=== PATIENT | male | born 1945 | race Caucasian/White ===

== ENCOUNTER 2017-03-19 17:52 | Emergency (ER) | payer BC, OTHER ==
[~2017-03-19] VITALS: Ht 175.3 cm; Wt 154.9 kg
[~2017-03-19 17:52] MED LIST: ASPIRIN EC325 MG PO; AVAPRO300 MG PO; AZOR 5/40 MG1 TABLET PO; BENICAR HCT 201 EACH PO; BENICAR40 MG PO; CELECOXIB200 MG PO; COLACE100 MG PO; Coumadin,Jantoven PO; ENDOCET 5-3251 EACH PO; FENOGLIDE40 MG PO; Feosol PO; GLUCOPHAGE1000 MG PO; HYDROCODON-ACE1 EAC7 PO; IRON325 M1 PO; LOVENOX40 MG/0.4 SC; Lofibra,Triglide PO; NEXIUM40 MG PO; OxyCONTIN PO; PERCOCET 5/31 TABLET PO; PRAVACHOL40 MG PO; PREDNISONE10 MG PO; PREDNISONE20 MG PO; Senokot S,Pericolace PO; Tylenol Regular Stre PO; VITAMIN B-12250 MCG PO; VITAMIN D1000 INTUN PO; VITAMIN D2000 UNIT PO; Vitamin D PO; oxyCODONE PO
[2017-03-19 18:37] LABS: HEMATOCRIT 40.2 % (38.0-50.0); MCH 27.1 PG (29.0-34.0); MCHC 32.1 G/DL (30.0-36.0); MCV 84.5 FL (86-99); MEAN PLAT.VOLUME 9.7 uM^3 (9.0-12.4); PLATELET COUNT 264 K/uL (156-360); RBC DIS.WIDTH-CV 14.8 % (11.8-14.6); RBC DIS.WIDTH-SD 45.4 % (39-53); RED BLOOD COUNT 4.76 M/uL (4.00-5.50)
[2017-03-19 18:45] LABS: CHLORIDE 105 mEq/L (99-109); POTASSIUM 4.2 mEq/L (3.7-5.4); SODIUM 139 mEq/L (136-147)
[2017-03-19 18:47] LABS: GLUCOSE 108 mg/dL (70-99)
[2017-03-19 18:49] LABS: ANION GAP 7 MEQ/L (2-14)
[2017-03-19 18:51] LABS: GFR ESTIMATE (CALCULATED) > 59 mL/min/ (58.99-99999)
[2017-03-19 18:52] LABS: UREA NITROGEN (BUN) 12 mg/dL (9-23)
[2017-03-19 18:59] LABS: TROP-I INTERPRETATION NEGATIVE; TROPONIN-I < 0.01 ng/mL (0.0-0.30)
[2017-03-19 21:29] VITALS: BP 130/81
== END 2017-03-19 21:30 | disposition home or self-care (01) ==
LOC: EME 17:52
DX: R00.2 Palpitations (principal); K21.9 Gastro-esophageal reflux disease without esophagitis; I10 Essential (primary) hypertension; G47.33 Obstructive sleep apnea (adult) (pediatric); E11.9 Type 2 diabetes mellitus without complications; Z85.038 Personal history of other malignant neoplasm of large intestine; Z87.442 Personal history of urinary calculi; Z79.84 Long term (current) use of oral hypoglycemic drugs; Z79.82 Long term (current) use of aspirin; Z87.891 Personal history of nicotine dependence; Z91.041 Radiographic dye allergy status
CPT/HCPCS: 71020; 80048; 84484; 85027; 93005; 99281; 99284

== ENCOUNTER 2017-04-15 16:54 | Observation (INO) | payer OTHER ==
[~2017-04-15] VITALS: Ht 175.3 cm; Wt 154.1 kg
[~2017-04-15 16:54] MED LIST changes: +CYANOCOBALAM1000 MCG PO; -VITAMIN B-12250 MCG PO
[2017-04-15 19:51] LABS: BASOPHIL (%) 0.5 % (0-1); EOSINOPHIL (%) 1.9 % (0-5); EOSINOPHIL COUNT 0.2 K/uL (0-0.3); HEMATOCRIT 41.1 % (38.0-50.0); HEMOGLOBIN 13.2 G/DL (12.5-16.6); IMMATURE GRANULOCYTE (%) 0.4 % (0.0-0.7); LYMPHOCYTE (%) 36.3 % (15-42); LYMPHOCYTE COUNT 2.9 K/uL (1.0-2.8); MCHC 32.1 G/DL (30.0-36.0); MONOCYTE (%) 8.9 % (3-12); MONOCYTE COUNT 0.7 K/uL (0-0.8); NEUTROPHIL COUNT 4.2 K/uL (1.8-6.4); PLATELET COUNT 270 K/uL (156-360); RBC DIS.WIDTH-CV 14.8 % (11.8-14.6); RBC DIS.WIDTH-SD 45.2 % (39-53); RED BLOOD COUNT 4.89 M/uL (4.00-5.50); WHITE BLOOD COUNT 8.1 K/uL (4.1-10.2)
[2017-04-15 20:19] LABS: CHLORIDE 105 mEq/L (99-109); POTASSIUM 4.3 mEq/L (3.7-5.4); SODIUM 139 mEq/L (136-147)
[2017-04-15 20:21] LABS: GLUCOSE 132 mg/dL (70-99)
[2017-04-15 20:24] LABS: TROP-I INTERPRETATION NEGATIVE; TROPONIN-I < 0.01 ng/mL (0.0-0.30)
[2017-04-15 20:25] LABS: GFR ESTIMATE (CALCULATED) > 59 mL/min/ (58.99-99999)
[2017-04-15 20:26] LABS: UREA NITROGEN (BUN) 14 mg/dL (9-23)
[2017-04-15] MEDS ORDERED: AMLODIPINE BES2.5 MG PO (21:23)
[2017-04-16] LABS: HDL CHOLESTEROL 42 MG/DL (Desirable>=40); LDL CHOLESTEROL 43 mg/dL (Desirable<100); NON-HDL CHOLESTEROL 101 mg/dL (Desirable<160); TOTAL CHOLESTEROL 143 mg/dL (Desirable<200); TRIGLYCERIDES 290 MG/DL (Normal: <150)
[2017-04-16 00:24] VITALS: BP 135/80
[2017-04-16 01:00] LABS: TROP-I INTERPRETATION NEGATIVE; TROPONIN-I < 0.01 ng/mL (0.0-0.30)
[2017-04-16 04:19] VITALS: BP 129/77
[2017-04-16 05:31] LABS: HEMATOCRIT 39.1 % (38.0-50.0); HEMOGLOBIN 12.2 G/DL (12.5-16.6); MCH 26.6 PG (29.0-34.0); MCHC 31.2 G/DL (30.0-36.0); MCV 85.2 FL (86-99); PLATELET COUNT 254 K/uL (156-360); RBC DIS.WIDTH-CV 15.1 % (11.8-14.6); RBC DIS.WIDTH-SD 46.5 % (39-53); RED BLOOD COUNT 4.59 M/uL (4.00-5.50); WHITE BLOOD COUNT 7.9 K/uL (4.1-10.2)
[2017-04-16 05:46] LABS: TROP-I INTERPRETATION NEGATIVE; TROPONIN-I 0.01 ng/mL (0.0-0.30)
[2017-04-16 05:56] LABS: ALBUMIN 3.4 G/DL (3.2-4.8); ALKALINE PHOSPHATASE 80 IU/L (3-129); ALT (GPT) 16 IU/L (3-49); AST (GOT) 10 IU/L (2-34); CHLORIDE 102 MEQ/L (99-109); GFR ESTIMATE (CALCULATED) > 59 mL/min/ (58.99-99999); GLUCOSE 136 mg/dL (70-99); POTASSIUM 3.9 MEQ/L (3.7-5.4); SODIUM 138 MEQ/L (136-147); TOTAL BILIRUBIN 0.3 MG/DL (0.0-1.0); TOTAL PROTEIN 6.4 G/DL (6.4-8.3); UREA NITROGEN (BUN) 16 mg/dL (9-23)
[2017-04-16 07:37] VITALS: BP 132/68
[2017-04-16 08:45] LABS: THYROTROPIN (TSH) 2.7 MIU/L (0.4-5.5)
[2017-04-16] MEDS ORDERED: DILTIAZEM 24HR120 MG PO (10:51)
[2017-04-16] MEDS ORDERED: ELIQUIS5 MG PO (11:20)
[2017-04-16 12:43] VITALS: BP 119/70
== END 2017-04-16 14:12 | disposition home or self-care (01) ==
LOC: EME 16:54 → EDOF 22:52 → 5WEST 22:52 → ENRESERV 22:55 → 5WEST 04-16 00:18
PROVIDERS: Internal Medicine; Physician Assistant
DX: I48.0 Paroxysmal atrial fibrillation (principal); E11.9 Type 2 diabetes mellitus without complications; I10 Essential (primary) hypertension; E78.5 Hyperlipidemia, unspecified; E66.9 Obesity, unspecified; Z68.43 Body mass index [BMI] 50.0-59.9, adult; K43.9 Ventral hernia without obstruction or gangrene; Z96.653 Presence of artificial knee joint, bilateral; K21.9 Gastro-esophageal reflux disease without esophagitis; K22.70 Barrett's esophagus without dysplasia; G47.33 Obstructive sleep apnea (adult) (pediatric); Z90.49 Acquired absence of other specified parts of digestive tract; Z85.038 Personal history of other malignant neoplasm of large intestine; Z86.19 Personal history of other infectious and parasitic diseases; Z87.891 Personal history of nicotine dependence; Z91.041 Radiographic dye allergy status; Z79.82 Long term (current) use of aspirin; Z79.84 Long term (current) use of oral hypoglycemic drugs; Z87.442 Personal history of urinary calculi
CPT/HCPCS: 71046; 80048; 80053; 80061; 82948; 84443; 84484; 85025; 85027; 85610; 85730; 93005; 93306; 99281; 99285; G0378; J1650

== ENCOUNTER 2017-05-28 06:25 | Observation (INO) | payer OTHER ==
[~2017-05-28] VITALS: Ht 175.3 cm; Wt 150.7 kg
[~2017-05-28 06:25] MED LIST changes: +AMLODIPINE BES2.5 MG PO; +DILTIAZEM 24HR120 MG PO; +ELIQUIS5 MG PO
[2017-05-28 07:14] LABS: HEMATOCRIT 42.2 % (38.0-50.0); HEMOGLOBIN 13.7 G/DL (12.5-16.6); MCH 27.5 PG (29.0-34.0); MCHC 32.5 G/DL (30.0-36.0); MCV 84.7 FL (86-99); PLATELET COUNT 328 K/uL (156-360); RBC DIS.WIDTH-CV 14.8 % (11.8-14.6); RBC DIS.WIDTH-SD 45.8 % (39-53); RED BLOOD COUNT 4.98 M/uL (4.00-5.50); WHITE BLOOD COUNT 8.2 K/uL (4.1-10.2)
[2017-05-28 07:50] LABS: CHLORIDE 102 MEQ/L (99-109); CREATININE 0.9 MG/DL (0.6-1.3); GFR ESTIMATE (CALCULATED) > 59 mL/min/ (58.99-99999); GLUCOSE 135 mg/dL (70-99); POTASSIUM 4.1 MEQ/L (3.7-5.4); SODIUM 136 MEQ/L (136-147); UREA NITROGEN (BUN) 15 mg/dL (9-23)
[2017-05-28 08:20] LABS: TROP-I INTERPRETATION NEGATIVE; TROPONIN-I < 0.01 ng/mL (0.0-0.30)
[2017-05-28 15:12] LABS: TROP-I INTERPRETATION NEGATIVE; TROPONIN-I < 0.01 ng/mL (0.0-0.30)
[2017-05-28 20:06] VITALS: BP 153/70
[2017-05-28 20:12] VITALS: BP 135/73
[2017-05-28 21:13] LABS: TROP-I INTERPRETATION NEGATIVE; TROPONIN-I < 0.01 ng/mL (0.0-0.30)
[2017-05-28 23:42] VITALS: BP 143/68
[2017-05-29 03:15] VITALS: BP 134/49
[2017-05-29 04:00] VITALS: BP 127/73
[2017-05-29 07:52] VITALS: BP 145/75
[2017-05-29 12:18] VITALS: BP 120/71
[2017-05-29 16:11] VITALS: BP 129/79
[2017-05-29 19:21] VITALS: BP 123/68
[2017-05-30 00:42] VITALS: BP 143/81
[2017-05-30 04:13] VITALS: BP 135/80
[2017-05-30 07:54] VITALS: BP 149/88
[2017-05-30 12:08] VITALS: BP 118/66
[2017-05-30] MEDS ORDERED: CARDIZEM30 MG PO (16:07)
[2017-05-30] MEDS ORDERED: DILTIAZEM 24HR120 MG PO (16:07)
== END 2017-05-30 16:48 | disposition home or self-care (01) ==
LOC: EME 06:25 → EDOF 10:30 → CANRESERV 10:34 → ENRESERV 10:34 → 5WEST 19:39
PROVIDERS: Internal Medicine
DX: I48.91 Unspecified atrial fibrillation (principal); I10 Essential (primary) hypertension; E78.5 Hyperlipidemia, unspecified; E11.9 Type 2 diabetes mellitus without complications; K22.70 Barrett's esophagus without dysplasia; Z85.038 Personal history of other malignant neoplasm of large intestine; Z90.49 Acquired absence of other specified parts of digestive tract; Z87.891 Personal history of nicotine dependence; Z79.4 Long term (current) use of insulin; G47.33 Obstructive sleep apnea (adult) (pediatric); R94.02 Abnormal brain scan
CPT/HCPCS: 70450; 71046; 80048; 82948; 84484; 85027; 93005; 99281; 99285; G0378; J7030

== ENCOUNTER 2017-08-09 05:33 | Inpatient (IN) | payer OTHER ==
[~2017-08-09] VITALS: Ht 172.7 cm; Wt 153.6 kg
[~2017-08-09 05:33] MED LIST changes: +CARDIZEM30 MG PO
[2017-08-09 06:14] LABS: HEMATOCRIT 41.9 % (38.0-50.0); HEMOGLOBIN 13.4 G/DL (12.5-16.6); MCH 26.6 PG (29.0-34.0); MCV 83.3 FL (86-99); PLATELET COUNT 273 K/uL (156-360); RBC DIS.WIDTH-CV 15.3 % (11.8-14.6); RBC DIS.WIDTH-SD 46.2 % (39-53); RED BLOOD COUNT 5.03 M/uL (4.00-5.50); WHITE BLOOD COUNT 9.3 K/uL (4.1-10.2)
[2017-08-09 06:16] LABS: INTER. NORMALIZED RATIO 1.2
[2017-08-09 06:18] LABS: PTT 31.6 SEC (25-37)
[2017-08-09 06:20] LABS: CHLORIDE 106 mEq/L (99-109); POTASSIUM 4.2 mEq/L (3.7-5.4); SODIUM 138 mEq/L (136-147)
[2017-08-09 06:21] LABS: GLUCOSE 153 mg/dL (70-99)
[2017-08-09 06:25] LABS: GFR ESTIMATE (CALCULATED) > 59 mL/min/ (58.99-99999)
[2017-08-09 06:26] LABS: UREA NITROGEN (BUN) 16 mg/dL (9-23)
[2017-08-09 06:31] LABS: TROP-I INTERPRETATION NEGATIVE; TROPONIN-I 0.01 ng/mL (0.0-0.30)
[2017-08-09 10:59] LABS: MAGNESIUM 1.8 mg/dl (1.3-2.7)
[2017-08-09] MEDS ORDERED: CARDIZEM30 MG PO (11:59)
[2017-08-09] MEDS ORDERED: DILTIAZEM 24HR360 M1 PO (12:00)
[2017-08-09 12:02] VITALS: BP 119/81
[2017-08-09] MEDS ORDERED: METOPROLOL SUCC50 MG PO (13:58)
[2017-08-09 16:14] VITALS: BP 100/58
[2017-08-09 19:04] VITALS: BP 135/65
[2017-08-09 23:15] VITALS: BP 146/78
[2017-08-10 03:45] VITALS: BP 156/81
[2017-08-10 06:38] LABS: HEMATOCRIT 40.3 % (38.0-50.0); HEMOGLOBIN 12.6 G/DL (12.5-16.6); MCH 26.5 PG (29.0-34.0); MCHC 31.3 G/DL (30.0-36.0); MCV 84.7 FL (86-99); PLATELET COUNT 257 K/uL (156-360); RBC DIS.WIDTH-CV 15.2 % (11.8-14.6); RBC DIS.WIDTH-SD 46.7 % (39-53); RED BLOOD COUNT 4.76 M/uL (4.00-5.50); WHITE BLOOD COUNT 6.7 K/uL (4.1-10.2)
[2017-08-10 07:01] LABS: ALBUMIN 3.7 G/DL (3.2-4.8); ALKALINE PHOSPHATASE 85 IU/L (3-129); ALT (GPT) 32 IU/L (3-49); AST (GOT) 17 IU/L (2-34); CHLORIDE 108 MEQ/L (99-109); CREATININE 0.9 MG/DL (0.6-1.3); GFR ESTIMATE (CALCULATED) > 59 mL/min/ (58.99-99999); GLUCOSE 119 mg/dL (70-99); POTASSIUM 4.5 MEQ/L (3.7-5.4); SODIUM 139 MEQ/L (136-147); TOTAL BILIRUBIN 0.5 MG/DL (0.0-1.0); TOTAL PROTEIN 6.5 G/DL (6.4-8.3); UREA NITROGEN (BUN) 15 mg/dL (9-23)
[2017-08-10 08:33] VITALS: BP 115/64
[2017-08-10 12:02] VITALS: BP 122/77
[2017-08-10 17:20] VITALS: BP 140/82
[2017-08-11] VITALS: BP 108/75
[2017-08-11 07:38] VITALS: BP 160/85
[2017-08-11 15:42] VITALS: BP 138/89
[2017-08-11 23:54] VITALS: BP 143/68
[2017-08-12 05:30] LABS: BASOPHIL (%) 0.5 % (0-1); EOSINOPHIL (%) 2.6 % (0-5); EOSINOPHIL COUNT 0.2 K/uL (0-0.3); HEMATOCRIT 37.6 % (38.0-50.0); HEMOGLOBIN 11.9 G/DL (12.5-16.6); IMMATURE GRANULOCYTE (%) 0.3 % (0.0-0.7); LYMPHOCYTE (%) 19.5 % (15-42); LYMPHOCYTE COUNT 1.1 K/uL (1.0-2.8); MCH 26.4 PG (29.0-34.0); MCHC 31.6 G/DL (30.0-36.0); MCV 83.6 FL (86-99); MONOCYTE (%) 7.8 % (3-12); MONOCYTE COUNT 0.5 K/uL (0-0.8); NEUTROPHIL (%) 69.3 % (45-76); NEUTROPHIL COUNT 4.1 K/uL (1.8-6.4); PLATELET COUNT 222 K/uL (156-360); RBC DIS.WIDTH-CV 15.1 % (11.8-14.6); RBC DIS.WIDTH-SD 45.5 % (39-53); WHITE BLOOD COUNT 5.9 K/uL (4.1-10.2)
[2017-08-12 05:54] LABS: CHLORIDE 106 MEQ/L (99-109); CREATININE 0.8 MG/DL (0.6-1.3); GFR ESTIMATE (CALCULATED) > 59 mL/min/ (58.99-99999); GLUCOSE 123 mg/dL (70-99); SODIUM 139 MEQ/L (136-147); UREA NITROGEN (BUN) 9 mg/dL (9-23)
[2017-08-12 06:15] LABS: TROP-I INTERPRETATION NEGATIVE; TROPONIN-I < 0.01 ng/mL (0.0-0.30)
[2017-08-12 07:39] VITALS: BP 140/83
== END 2017-08-12 16:57 | disposition home or self-care (01) | DRG 389 ==
LOC: EME 05:33 → 4EAST 09:30 → EDOF 09:30 → ENRESERV 09:34 → 4EAST 11:45 → ENRESERV 08-10 14:07 → 5SOUTH 08-10 16:57
PROVIDERS: Hospitalist; Student in an Organized Health Care Education/Training Program
DX: K56.51 Intestinal adhesions [bands], with partial obstruction (principal); E66.01 Morbid (severe) obesity due to excess calories; Z68.43 Body mass index [BMI] 50.0-59.9, adult; K43.2 Incisional hernia without obstruction or gangrene; I48.2 Chronic atrial fibrillation; E11.9 Type 2 diabetes mellitus without complications; E78.5 Hyperlipidemia, unspecified; D72.829 Elevated white blood cell count, unspecified; I10 Essential (primary) hypertension; K42.9 Umbilical hernia without obstruction or gangrene; I25.10 Atherosclerotic heart disease of native coronary artery without angina pectoris; K21.9 Gastro-esophageal reflux disease without esophagitis; G47.33 Obstructive sleep apnea (adult) (pediatric); Z85.038 Personal history of other malignant neoplasm of large intestine; Z87.442 Personal history of urinary calculi; Z90.49 Acquired absence of other specified parts of digestive tract; Z96.653 Presence of artificial knee joint, bilateral; Z79.01 Long term (current) use of anticoagulants; Z79.84 Long term (current) use of oral hypoglycemic drugs; Z91.041 Radiographic dye allergy status; Z71.3 Dietary counseling and surveillance
CPT/HCPCS: 71045; 71046; 74018; 74176; 80048; 80053; 82948; 83735; 84484; 85025; 85027; 85610; 85730; 93005; 99281; 99285; J1815; J3010; J7030

== ENCOUNTER 2017-11-16 13:14 | Inpatient (IN) | payer OTHER ==
[~2017-11-16] VITALS: Ht 175.3 cm; Wt 143.9 kg
[~2017-11-16 13:14] MED LIST changes: +DILTIAZEM 24HR360 M1 PO; +METOPROLOL SUCC50 MG PO
[2017-11-16 14:08] LABS: BASOPHIL (%) 0.4 % (0-1); EOSINOPHIL (%) 2.2 % (0-5); EOSINOPHIL COUNT 0.2 K/uL (0-0.3); HEMATOCRIT 39.2 % (38.0-50.0); HEMOGLOBIN 12.2 G/DL (12.5-16.6); IMMATURE GRANULOCYTE (%) 0.2 % (0.0-0.7); LYMPHOCYTE (%) 27.5 % (15-42); LYMPHOCYTE COUNT 2.2 K/uL (1.0-2.8); MCH 26.5 PG (29.0-34.0); MCHC 31.1 G/DL (30.0-36.0); MONOCYTE (%) 7.4 % (3-12); MONOCYTE COUNT 0.6 K/uL (0-0.8); NEUTROPHIL (%) 62.3 % (45-76); NEUTROPHIL COUNT 5.1 K/uL (1.8-6.4); PLATELET COUNT 231 K/uL (156-360); RBC DIS.WIDTH-CV 16.6 % (11.8-14.6); RBC DIS.WIDTH-SD 51.3 % (39-53); RED BLOOD COUNT 4.61 M/uL (4.00-5.50); WHITE BLOOD COUNT 8.2 K/uL (4.1-10.2)
[2017-11-16 14:17] LABS: CHLORIDE 109 mEq/L (99-109); POTASSIUM 4.9 mEq/L (3.7-5.4); SODIUM 139 mEq/L (136-147)
[2017-11-16 14:19] LABS: GLUCOSE 123 mg/dL (70-99)
[2017-11-16 14:22] LABS: GFR ESTIMATE (CALCULATED) > 59 mL/min/ (58.99-99999)
[2017-11-16 14:23] LABS: UREA NITROGEN (BUN) 19 mg/dL (9-23)
[2017-11-16 14:29] LABS: TROP-I INTERPRETATION NEGATIVE; TROPONIN-I < 0.01 ng/mL (0.0-0.30)
[2017-11-16] MEDS ORDERED: METOPROLOL SUC100 MG PO (15:42)
[2017-11-16] MEDS ORDERED: IRBESARTAN150 MG PO (15:42)
[2017-11-16] MEDS ORDERED: ESOMEPRAZOLE MA40 MG PO (15:43)
[2017-11-16 18:17] VITALS: BP 138/82
[2017-11-16 19:00] VITALS: BP 144/78
[2017-11-16 20:00] VITALS: BP 136/49
[2017-11-16 21:00] VITALS: BP 120/80
[2017-11-16 22:00] VITALS: BP 120/74; BP 140/79
[2017-11-16 23:00] VITALS: BP 139/73
[2017-11-17] VITALS (16 sets, daily range): BP systolic 124–168; BP diastolic 72–99
[2017-11-18] VITALS (7 sets, daily range): BP systolic 117–166; BP diastolic 66–85
[2017-11-19 04:53] VITALS: BP 130/74
[2017-11-19 07:25] VITALS: BP 137/93
[2017-11-19 20:30] VITALS: BP 132/82
[2017-11-19 23:20] VITALS: BP 131/66
[2017-11-20 03:40] VITALS: BP 127/83
[2017-11-20 07:51] VITALS: BP 136/85
[2017-11-20] MEDS ORDERED: LOSARTAN POTASS50 MG PO (11:24)
[2017-11-20] MEDS ORDERED: METOPROLOL SUCC50 MG PO (11:24)
[2017-11-20] MEDS ORDERED: CARDIZEM90 MG PO (11:24)
[2017-11-20 11:36] VITALS: BP 141/74
[2017-11-20 15:52] VITALS: BP 134/83
== END 2017-11-20 16:21 | disposition home or self-care (01) | DRG 243 ==
LOC: EME 13:14 → 4WEST 17:18 → EDOF 17:18 → 4EAST 17:18 → ENRESERV 17:22 → 4WEST 18:17 → ENRESERV 11-17 11:04 → 4WEST 11-17 12:50 → ENRESERVTM 11-17 12:53 → 4EAST 11-17 13:39
PROVIDERS: Emergency Medicine; Internal Medicine
PROC: 02HK3JZ Insertion of Pacemaker Lead into Right Ventricle, Percutaneous Approach (ICD-10-PCS; principal; 2017-11-19)
PROC: 0JH604Z Insertion of Pacemaker, Single Chamber into Chest Subcutaneous Tissue and Fascia, Open Approach (ICD-10-PCS; principal; 2017-11-19)
DX: I49.5 Sick sinus syndrome (principal); I48.0 Paroxysmal atrial fibrillation; K21.9 Gastro-esophageal reflux disease without esophagitis; I10 Essential (primary) hypertension; G47.33 Obstructive sleep apnea (adult) (pediatric); E11.9 Type 2 diabetes mellitus without complications; G43.909 Migraine, unspecified, not intractable, without status migrainosus; E78.5 Hyperlipidemia, unspecified; I25.10 Atherosclerotic heart disease of native coronary artery without angina pectoris; Z96.659 Presence of unspecified artificial knee joint; E66.01 Morbid (severe) obesity due to excess calories; K43.9 Ventral hernia without obstruction or gangrene; Z85.038 Personal history of other malignant neoplasm of large intestine; Z90.49 Acquired absence of other specified parts of digestive tract; Z91.041 Radiographic dye allergy status; Z79.01 Long term (current) use of anticoagulants; Z87.891 Personal history of nicotine dependence; I25.2 Old myocardial infarction; Z68.42 Body mass index [BMI] 45.0-49.9, adult
CPT/HCPCS: 71045; 80048; 82948; 84484; 85025; 87641; 93005; 99281; 99285; C1786; C1894; C1898; J0461; J0690; J1644; J2250; J3010; J7030; J7050; S0020